=== PATIENT | male | born 1995 | race Two or more races ===

== ENCOUNTER 2018-11-20 23:30 | Emergency (ER) | payer BC ==
[~2018-11-20] VITALS: Ht 180.3 cm; Wt 79.4 kg
[2018-11-20 23:30] VITALS: BP 101/47
--- NOTE | 2018-11-20 23:30 | NUR ---
ED Nurse Note: pt juan BURCIAGA via gurney for episode of syncope. pt was at a [employer] when the episode happened. BP 90/80 NS bolus was started by the personal computer network engineer. pt is currently alert x4. denies hitting head. pt is ambulatory.
--- NOTE | 2018-11-20 23:45 | NUR ---
ED Nurse Note: blood draws sent to lab
[2018-11-21 00:02] VITALS: BP_SYST 101; BP_SYST 104; BP_DIAS 46; BP_DIAS 47
--- NOTE | 2018-11-21 00:05 | Diagnostic Imaging Report ---
EXAM: XR Chest, 1 View CLINICAL HISTORY: SYNCOPE TECHNIQUE: Frontal view of the chest. COMPARISON: No relevant prior studies available. FINDINGS: Lungs: Unremarkable. No consolidation. Pleural space: Unremarkable. No pneumothorax. Heart: Unremarkable. No cardiomegaly. Mediastinum: Unremarkable. Bones/joints: Unremarkable. IMPRESSION: Normal chest x-ray.
[2018-11-21 00:06] LABS: BASOPHILS % (AUTO) 1.6 % (0.0-2.0); EOSINOPHILS % (AUTO) 5.1 % (0.0-3.0); HEMATOCRIT 42.3 % (42.0-52.0); LYMPHOCYTES % (AUTO) 45.9 % (20.0-45.0); MEAN CORPUSCULAR VOLUME 90 FL (80-99); MONOCYTES % (AUTO) 7.3 % (1.0-10.0); NEUTROPHILS % (AUTO) 40.1 % (45.0-75.0); PLATELET COUNT 188 K/UL (150-450); RED BLOOD COUNT 4.68 M/UL (4.70-6.10); RED CELL DISTRIBUTION WIDTH 10.4 % (11.6-14.8); WHITE BLOOD COUNT 7.5 K/UL (4.8-10.8)
--- NOTE | 2018-11-21 00:24 | Emergency Room Report ---
History of Present Illness General Chief Complaint: Syncope Source: Patient Present Illness HPI Disclaimer: Please note that this report is being documented using DRAGON technology. This can lead to erroneous entry secondary to incorrect interpretation by the dictating instrument. HPI: 22-year-old otherwise healthy male presents for evaluation after syncopal episode. Patient was waiting outside a restaurant for reservation when he felt lightheaded and stumbled down to the ground. He fell onto his knees first and then fell down onto his face. Bystanders reported a brief loss of consciousness and quickly regained consciousness. He denied any prior chest pain, shortness of breath, nausea. He admits to some alcohol use earlier today as well as marijuana. No prior history of syncope. No family history of hypertrophic cardiomyopathy, no personal history of arrhythmia. He is feeling much better though was found hypotensive by EMS. He was receiving IV fluids on the way. Currently has no complaints PMH: Denies PSH: Denies Allergies: Denies Social Hx: Social alcohol use, intermittent marijuana use. Denies tobacco use Allergies: Coded Allergies: No Known Allergies (Unverified , 11/20/18) Nursing Documentation-PMH Past Medical History: No Stated History Review of Systems All Other Systems: negative except mentioned in HPI Physical Exam Vital Signs Date Time Temp Pulse Resp B/P (MAP) Pulse Ox O2 Delivery O2 Flow Rate FiO2 11/20/18 23:26 99.0 80 18 99/59 (72) 99 Room Air General: Awake and alert, no acute distress HEENT: NC/AT. Mild abrasion over the right zygoma. Minimal tenderness. No hematoma. EOMI. PERRLA. No TMJ tenderness, no malocclusion, no loose dentition. No midface instability. Neck: Supple, trachea midline Chest Wall: No tenderness, no deformity Cardiovascular: RRR. S1 and S2 normal. No murmur appreciated Resp: Normal work of breathing. No cough, wheezing or crackles appreciated Abdomen: Abdomen is soft, nondistended. Nontender Skin: Intact. abrasions over the knees bilaterally. MSK: Normal tone and bulk. Moving all extremities. No obvious deformity. No tenderness over the patella. Joints are stable, full range of motion Neuro: Awake and alert. Mentating appropriately. Medical Decision Making Diagnostic Impression: Primary Impression: Syncope ER Course 32-year-old male presents for evaluation after syncopal episode. Differential includes was not limited to dehydration, orthostatic hypotension, letter light abnormality, exhaustion, alcohol use, THC use, arrhythmia, ACS. We will start broad metabolic, infectious and cardiology work-up. He was found hypotensive by EMS and continues to receive IV fluids. He has no complaints and states he is feeling much better. Laboratory Tests Test 11/20/18 23:44 White Blood Count 7.5 K/UL (4.8-10.8) Red Blood Count 4.68 M/UL (4.70-6.10) L Hemoglobin 15.0 G/DL (14.2-18.0) Hematocrit 42.3 % (42.0-52.0) Mean Corpuscular Volume 90 FL (80-99) Mean Corpuscular Hemoglobin 32.1 PG (27.0-31.0) H Mean Corpuscular Hemoglobin Concent 35.5 G/DL (32.0-36.0) Red Cell Distribution Width 10.4 % (11.6-14.8) L Platelet Count 188 K/UL (150-450) Mean Platelet Volume 6.9 FL (6.5-10.1) Neutrophils (%) (Auto) 40.1 % (45.0-75.0) L Lymphocytes (%) (Auto) 45.9 % (20.0-45.0) H Monocytes (%) (Auto) 7.3 % (1.0-10.0) Eosinophils (%) (Auto) 5.1 % (0.0-3.0) H Basophils (%) (Auto) 1.6 % (0.0-2.0) Sodium Level 142 MMOL/L (136-145) Potassium Level 3.4 MMOL/L (3.5-5.1) L Chloride Level 107 MMOL/L (98-107) Carbon Dioxide Level 25 MMOL/L (21-32) Anion Gap 10 mmol/L (5-15) Blood Urea Nitrogen 14 mg/dL (7-18) Creatinine 1.0 MG/DL (0.55-1.30) Estimate Glomerular Filtration Rate > 60 mL/min (>60) Glucose Level 104 MG/DL (74-106) Calcium Level 8.9 MG/DL (8.5-10.1) Total Bilirubin 0.6 MG/DL (0.2-1.0) Aspartate Amino Transferase (AST) 18 U/L (15-37) Alanine Aminotransferase (ALT) 21 U/L (12-78) Alkaline Phosphatase 60 U/L (46-116) Total Creatine Kinase 78 U/L (26-308) Creatine Kinase MB 0.7 NG/ML (0.0-3.6) Creatine Kinase MB Relative Index 0.8 Troponin I 0.010 ng/mL (0.000-0.056) Pro-B-Type Natriuretic Peptide 9 pg/mL (0-125) Total Protein 6.2 G/DL (6.4-8.2) L Albumin 3.8 G/DL (3.4-5.0) Globulin 2.4 g/dL Albumin/Globulin Ratio 1.6 (1.0-2.7) EKG Diagnostic Results EKG Time: 23:35 Rate: normal Rhythm: NSR ST Segments: no acute changes Other Impression Sinus rhythm, slight right axis deviation, no acute ST segment changes. Nonischemic. Normal intervals. Rhythm Strip Diag. Results Rhythm Strip Time: 23:35 EP Interpretation: yes Rate: 60s Rhythm: NSR, no PVC's, other - Sinus arrhythmia Chest X-Ray Diagnostic Results Chest X-Ray Diagnostic Results : Chest X-Ray Ordered: Yes # of Views/Limited/Complete: 1 View Indication: Other - Syncope EP Interpretation: Yes Interpretation: no consolidation, no effusion, no pneumothorax, other - Normal cardiac silhouette Impression: No acute disease Electronically Signed by: Electronically signed by Dr. Joel Salcedo Reevaluation Time: 01:52 Last Vital Signs Date Time Temp Pulse Resp B/P (MAP) Pulse Ox O2 Delivery O2 Flow Rate FiO2 11/21/18 00:02 99.0 60 18 104/47 99 Room Air 101/46 Status: improved Reevaluation Impression Labs have returned largely within normal limits. Troponin is negative. Chest x -ray shows a normal cardiac silhouette, EKG is largely unremarkable except for slight right axis deviation. I performed a bedside ultrasound which shows normal septum size, good contractility, no pericardial effusion is otherwise unremarkable. The patient is received 2 L IV fluids and feels much better. He is requesting discharge home. He can follow-up with his PMD. We discussed reasons to return to the emergency department. He understands and agrees with treatment plan. Disposition: HOME, SELF-CARE Condition: Improved Joel Salcedo MD Nov 21, 2018 00:24
[2018-11-21 00:50] LABS: ANION GAP 10 mmol/L (5-15); BLOOD UREA NITROGEN 14 mg/dL (7-18); CALCIUM 8.9 MG/DL (8.5-10.1); CARBON DIOXIDE 25 MMOL/L (21-32); CHLORIDE 107 MMOL/L (98-107); POTASSIUM 3.4 MMOL/L (3.5-5.1); SODIUM 142 MMOL/L (136-145)
--- NOTE | 2018-11-21 00:59 | NUR ---
ED Nurse Note: CXR done, pt in bed on his phone. VSS. No acute distress noted at this time.
[2018-11-21 01:03] LABS: ALANINE AMINOTRANSFERASE 21 U/L (12-78); ALBUMIN 3.8 G/DL (3.4-5.0); ALBUMIN/GLOBULIN RATIO 1.6 (1.0-2.7); ALKALINE PHOSPHATASE 60 U/L (46-116); ASPARTATE AMINO TRANSFERASE 18 U/L (15-37); BILIRUBIN,TOTAL 0.6 MG/DL (0.2-1.0); CKMB 0.7 NG/ML (0.0-3.6); CREATINE KINASE 78 U/L (26-308)
[2018-11-21 01:44] VITALS: BP 105/60
[2018-11-21 01:58] VITALS: BP 101/60
--- NOTE | 2018-11-21 01:58 | NUR ---
ER DISCHARGE NOTE: Patient is cleared to be discharged per ERMD, pt is aox4, on room air, with stable vital signs. pt was given dc and instructions, pt was able to verbalize understanding, pt id band and iv site removed without complications. pt is able to ambulate with steady gait. pt took all belongings.
--- NOTE | 2018-11-23 11:33 | Cardiology Report ---
APPROVED REPORT EKG Measurement Heart [id number] Sinus rhythm with marked sinus arrhythmia Rightward axis Incomplete right bundle branch block Borderline ECG
== END 2018-11-21 01:58 | disposition home or self-care (01) ==
LOC: EDBD 23:30 → EMR 11-21 00:33
DX: R55 Syncope and collapse (principal); F12.10 Cannabis abuse, uncomplicated
CPT/HCPCS: 36415; 71045; 80053; 82550; 82553; 83880; 84484; 85025; 93005; 96360; 96361; 99284